=== PATIENT | male | born 1970 | race Caucasian/White ===

== ENCOUNTER 2018-04-06 05:40 | Inpatient (IN) | payer BC ==
[~2018-04-06] VITALS: Ht 177.8 cm; Wt 86.2 kg
[2018-04-06] MEDS ORDERED: ALVIMOPAN 12 MG CAPSULE PO ONE (06:21)
[2018-04-06] MEDS ORDERED: DEXAMETHASONE SOD PHOSPHATE 4 MG/ML VIAL IVP ONE (07:10)
[2018-04-06] MEDS ORDERED: PROPOFOL 200MG/ 20ML VIAL (DIPRIVAN) IV ONE (07:10)
[2018-04-06] MEDS ORDERED: DILTIAZEM HCL 25 MG/5 ML VIAL IV ONE (07:10)
[2018-04-06] MEDS ORDERED: MIDAZOLAM HCL 5 MG/5 ML VIAL IVP ONE (07:10)
[2018-04-06] MEDS ORDERED: fentaNYL CITRATE/PF 100 MCG/2 ML AMP IVP ONE (07:10)
[2018-04-06] MEDS ORDERED: fentaNYL CITRATE 250 MCG/5 ML AMP IV ONE (07:10)
[2018-04-06] MEDS ORDERED: D5W 100 ML IV.SOLN IV ONE (07:10)
[2018-04-06] MEDS ORDERED: KETOROLAC TROMETHAMINE 30 MG VIAL IVP ONE (07:10)
[2018-04-06] MEDS ORDERED: ROCURONIUM BROMIDE 10 MG/ML (ZEMURON) IV ONE (07:10)
[2018-04-06] MEDS ORDERED: ONDANSETRON HCL 4 MG/2 ML VIAL IVP ONE (07:10)
[2018-04-06] MEDS ORDERED: cefOXitin SODIUM 2 GM/VIAL (MEFOXIN) IV ONE (07:10)
[2018-04-06] MEDS ORDERED: LR 1,000 ML IV.SOLN IV ONE (07:10)
[2018-04-06] MEDS ORDERED: SEVOFLURANE 15 MIN GAS INH ONE (07:10)
[2018-04-06] MEDS ORDERED: cefOXitin 1 GM IVPB PREMIX 100 ML IV ONE (07:12)
[2018-04-06] MEDS ORDERED: LR 1,000 ML IV SCH (09:05)
[2018-04-06] MEDS ORDERED: HYDROmorphone 2 MG/ML VIAL IVP PRN ×2 (09:15)
[2018-04-06] MEDS ORDERED: HYDROmorphone 1 MG INJ. 1 MG/ML AMPUL IVP PRN (09:15)
[2018-04-06] MEDS ORDERED: MEPERIDINE HCL/PF 25 MG/ML DISP.SYRIN IVP PRN (09:15)
[2018-04-06] MEDS ORDERED: HYDROcodone/ACETAMIN 5-325 MG TAB (NORCO/ VICODIN) PO PRN (10:45)
[2018-04-06] MEDS ORDERED: ONDANSETRON HCL 4 MG/2 ML VIAL IVP PRN (10:45)
[2018-04-06] MEDS ORDERED: ACETAMINOPHEN 325 MG TABLET PO PRN (10:45)
[2018-04-06 11:40] LABS: HEMATOCRIT 42.5 % (36-54); HEMOGLOBIN 14.5 g/dL (14.0-18.0)
[2018-04-06 11:54] LABS: CALCIUM 8.3 mg/dL (8.4-11.0); CREATININE 1.6 mg/dL (0.55-1.30); POTASSIUM 4.7 mmol/L (3.5-5.1)
[2018-04-06] MEDS ORDERED: HYDROmorphone 2 MG/ML VIAL ONE (12:14)
[2018-04-06 13:00] VITALS: BP_SYST 149
--- NOTE | 2018-04-06 13:00 | NUR ---
ADMISSION NOTE: PATIENT ARRIVED FROM PACU. PATIENT IS ALERT AND ORIENTED. PATIENT IS ON 2L NC BECAUSE HE DESATS WHEN HE IS SLEEPING. PATIENT HAS SOME PAIN. PATIENT NOT COMPLAINING OF NAUSEA OR VOMITING. PATIENT HAS GALLEGO HANGING TO GRAVITY. INCENTIVE SPIROMETER AT BEDSIDE AND ENCOURAGED TO USE. DRESSING DRY AND INTACT. ICE PACK ON WOUND. VITALS ARE TAKEN. FAMILY AT BEDSIDE. BED ALARM IS ON AND CALL LIGHT IS IN REACH. WILL CONTINUE TO MONITOR.
[2018-04-06 13:23] VITALS: BP_SYST 149
[2018-04-06] MEDS: D5/0.45 NS 1,000 ML IV SCH ×2 (14:16→21:56)
[2018-04-06] MEDS: HYDROmorphone 1 MG INJ. 1 MG/ML AMPUL IVP PRN ×2 (14:26→17:16)
[2018-04-06 14:35] VITALS: BP_SYST 149
--- NOTE | 2018-04-06 14:36 | NUR ---
NOTE: PATIENT WAS COMPLAINING OF PAIN. GAVE PAIN MEDICATION AND IV FLUIDS. WILL CONTINUE TO MONITOR.
--- NOTE | 2018-04-06 16:06 | NUR ---
NOTE: PATIENT WAS BLEEDING FROM RECTUM. BLOOD RED AND SATURATED CHUCKS. BLOOD CLOTS PRESENT. TOOK VITALS AND WERE 120/74, 99 HR, 12 RR, TEMP 97.3. PATIENT WAS CLEANED UP. PATIENT LITTLE LIGHT HEADED BUT SAID HE'S BEEN LIGHT HEADED SINCE YESTERDAY. WILL CONTINUE TO MONITOR.
--- NOTE | 2018-04-06 17:01 | NUR ---
MD: PATIENT HAD ANOTHER EPISODE OF BLEEDING FROM RECTUM. BLOOD A LITTLE DARKER. CALLED AND LET DR. FUNES KNOW. ORDERED H&H. VITALS STILL STABLE. WILL CONTINUE TO MONITOR.
[2018-04-06 17:32] LABS: HEMATOCRIT 42.4 % (36-54); HEMOGLOBIN 14.4 g/dL (14.0-18.0)
--- NOTE | 2018-04-06 19:30 | NUR ---
CLOSING NOTE: GAVE REPORT TO RISK PROFESSIONAL NURSE. PATIENT LAYING IN BED. PATIENT HAD ANOTHER EPISODE OF BLEEDING. PATIENT BEING CLEANED UP. FLUIDS ARE INFUSING. DRESSING IS DRY AND INTACT. PATIENT HAS SCD'S ON. PATIENT ON 2L NC. PATIENT HAS INCENTIVE SPIROMETER AT BEDSIDE AND HAS BEEN USING IT. PATIENT SAID HE IS FEELING MORE LIGHT HEADED AND SWEATY BUT NO TEMP. WILL CALL DR. FUNES. BED ALARM IS ON AND CALL LIGHT IS IN REACH.
--- NOTE | 2018-04-06 19:34 | NUR ---
MD: CALLED DR. FUNES TO LET HIM KNOW PATIENT STILL BLEEDING AND RESULTS FROM H&H. SAID TO CALL HIM AROUND 11 PM TO LET HIM KNOW HOW MANY MORE EPISODES HE HAS. WILL ENDORSE TO SECURITY SCREENER NURSE. ORDERED TYPE AND SCREEN WELL JUST IN CASE.
[2018-04-06 19:43] VITALS: BP_SYST 143
--- NOTE | 2018-04-06 19:52 | NUR ---
INITIAL NOTES: PT IS IS ON BED. AWAKE, ALERT,ORIENTED, WORRIED ABOUT BLOOD IS COMING OUT FROM HIS ANUS POST-OP. VITAL SIGN ARE WITH NORMAL LIMIT. NO FEVER. PAIN /. PT CHUX WAS SOILED WITH BLOOD. CLEAN PT. NO SKIN BREAKDOWN. IVF INFUSING TO LEFT HAND GAUGE 22-NO INFILTRATE. SCD IN PLACE. INSTRUCTED TO USE I.S. HYPERACTIVE BOWEL SOUND. ABDOMINAL DRESSING IS INTACT AND DRY. POC DISCUSSED WITH THE PT. FAMILY AT BEDSIDE. CALL LIGHT IN REACH SIDE RAILS UP. WILL CONTINUE TO MONITOR. Addendum: 04/06/18 at 1958 by Cheko Arana RN GALLEGO CATHETER SEEN HANGING BELOW BED LEVEL.
[2018-04-06] MEDS: HYDROcodone/ACETAMIN 5-325 MG TAB (NORCO/ VICODIN) PO PRN (20:23)
[2018-04-06] MEDS: ALVIMOPAN 12 MG CAPSULE PO SCH (20:26)
[2018-04-06] MEDS: FAMOTIDINE PF 20 MG/2 ML VIAL IVP SCH (21:50)
[2018-04-06] MEDS: cefOXitin SODIUM 2 GM in D5W 100 ML IV SCH (21:51)
--- NOTE | 2018-04-06 22:12 | NUR ---
ROUNDS: PT IS COMPLAINING OF PAIN ON ABDOMEN. GALLEGO CATHETER IS LEAKING. GALLEGO CATHETER IS CLOGGED. REMOVE GALLEGO CATHETER AND PT START TO VOID BY HIS OWN. WITH SOME PAIN RELIEF. VITAL SIGN ARE STABLE. BLOOD STILL COMING OUT FROM ANUS. JULIUS TALAMANTES TO MONITOR. Addendum: 04/06/18 at 2223 by Cheko Arana RN JANINE TYPE OF GALLEGO CATHETER WAS REMOVE FROM PT.
[2018-04-06 22:18] VITALS: BP_SYST 129
--- NOTE | 2018-04-06 23:09 | NUR ---
CALL DR. Winsome FUNES- UPDATED MD ABOUT BLEEDING. ALSO INFORM MD THAT GALLEGO CATHETER WERE REMOVE CAUSE IT IS CLOGGED. MD ORDER CBC AND BMP IN AM AND ALSO AGREE TO DC GALLEGO CATHETER- AND ALSO ORDER TO REINSERT IF NO VOIDING IN 8 HOURS.
--- NOTE | 2018-04-06 23:25 | NUR ---
PT DEFECATE WITH BLOOD AGAIN. PT IS SO WORRIED. BP-97/77, HR-97. CALL DR. FUNES. INFORM MD ABOUT IT. MD ORDER STAT HEMOGLOBIN.
[2018-04-06 23:52] LABS: HEMATOCRIT 35.6 % (36-54)
[2018-04-06 23:55] LABS: HEMOGLOBIN 12.3 g/dL (14.0-18.0)
[2018-04-07] MEDS: HYDROmorphone 1 MG INJ. 1 MG/ML AMPUL IVP PRN ×7 (00:21→22:05)
--- NOTE | 2018-04-07 00:30 | NUR ---
call dr. zuñiga. inform md about the result of h elliott barclay. md order to crossmatch 2 units and hold. .
--- NOTE | 2018-04-07 01:00 | NUR ---
call lab. about cross match and hold. spoke to mally- she said that they can't crossmatch blood if it will not be transfuse, they can't hold on blood. she recommend to type and screen. if pt. needs blood transfusion and that the only time they will crossmatch.
[2018-04-07 01:45] VITALS: BP_SYST 110
--- NOTE | 2018-04-07 02:00 | NUR ---
round: resting, no distress. ivf infusing well. at bedside. will follow-up.
--- NOTE | 2018-04-07 03:00 | NUR ---
pt defecate blood with clots again. blood pressure is stable. remind pt that he have blood works in am. clean pt by cna. simeon
--- NOTE | 2018-04-07 04:30 | NUR ---
round notes: pt is resting. awake. watching tv. stable. ivf infusing well. will continue to monitorr.
--- NOTE | 2018-04-07 06:49 | NUR ---
closing: pt is still awake, alert. no sign of pain and distress. pt stated that he passing gas. ivf infusing. at bedside. pt is using urinal. needs attended the whole shift. will give bedside report to am rn.
[2018-04-07 06:56] LABS: CALCIUM 7.6 mg/dL (8.4-11.0); CREATININE 1.49 mg/dL (0.55-1.30)
[2018-04-07 06:57] LABS: BASOPHILS % (AUTO) 0.3 % (0.0-2.0); HEMATOCRIT 29.7 % (36-54); HEMOGLOBIN 10.1 g/dL (14.0-18.0); LYMPHOCYTES # (AUTO) 0.9 K/uL (1.0-5.5); LYMPHOCYTES % (AUTO) 6.9 % (20.5-51.5); MEAN CORPUSCULAR HEMOGLOBIN 31 pg (27-31); MEAN CORPUSCULAR HGB CONC 34 % (32-36); MEAN CORPUSCULAR VOLUME 90 fL (79.0-98.0); MONOCYTES # (AUTO) 0.9 K/uL (0.0-1.0); MONOCYTES % (AUTO) 6.9 % (1.7-9.3); NEUTROPHILS # (AUTO) 10.9 K/uL (1.8-7.7); NEUTROPHILS % (AUTO) 85.9 % (40.0-70.0); PLATELET COUNT (AUTO) 279 K/uL (130-430); RED BLOOD CELL COUNT(AUTO) 3.31 MIL/uL (4.2-6.2); RED CELL DISTRIBUTION WIDTH 12.6 % (9.0-15.0); WHITE BLOOD COUNT (AUTO) 12.7 K/uL (4.8-10.8)
[2018-04-07 07:06] LABS: ALBUMIN 2.5 g/dL (3.4-4.8); TOTAL BILIRUBIN 0.5 mg/dL (0.0-1.0)
[2018-04-07 07:45] VITALS: BP_SYST 114
--- NOTE | 2018-04-07 07:45 | NUR ---
OPENING NOTES, RECEIVED PT IN BED, PT IS AAOX4, C/O PAIN, 03/24, WILL MEDICATE, PT RECEIVING IV FLUIDS ON L WRIST IV ACCESS, NO S/S OF INFILTRATION OR SWELLING. CALL LIGHT IN REACH, BED IN LOW POSITION. FAMILY AT BEDSIDE. ENCOURAGED TO CALL FOR ASSIST AND ANY CONCERNS. WILL CONT TO MONITOR.
[2018-04-07] MEDS ORDERED: LR 1,000 ML IV SCH (08:00)
[2018-04-07] MEDS: FAMOTIDINE PF 20 MG/2 ML VIAL IVP SCH ×2 (08:14→20:14)
[2018-04-07] MEDS: ALVIMOPAN 12 MG CAPSULE PO SCH ×2 (08:14→20:14)
[2018-04-07] MEDS: cefOXitin SODIUM 2 GM in D5W 100 ML IV SCH (08:19)
[2018-04-07] MEDS ORDERED: ENOXAPARIN SODIUM 30 MG/0.3 ML SYRINGE SUBCUT SCH (09:00)
--- NOTE | 2018-04-07 09:24 | NUR ---
Nutrition Update Corby Scale 18 noted. Pt admitted for diverticulitis of colon. Diet: NPO BMI: 27.3 kg/m2 RD to follow per nutrition care standards.
--- NOTE | 2018-04-07 10:00 | NUR ---
PT C/O OF 2/10 PAIN, TOLERABLE, LR BOLUS STARTED, TOLD PT TO CALL IF HE FEELS APIN ON HIS IV SITE OR SWELLING. WILL CONT TO MONITOR.
--- NOTE | 2018-04-07 11:29 | NUR ---
PT C/O CHEST PAIN, PT DESCRIBED IT GASSY PAIN THOUGH, VITALS ARE 123/75, HR 104, 95% ON . -03/24. PT STATED WHEN HE BREATH DEEP THE PAIN IN MORE COMPARED TO SHALLOW FAST BREATHING PAIN GOED DOWN A LITTLE BETTER. WILL INFORM MD. Addendum: 04/07/18 at 1225 by Rolando Ramirez RN ana zuñiga, this rn told to call 's cell phone but phone number is wrong #.
[2018-04-07] MEDS: D5/0.45 NS 1,000 ML IV SCH ×2 (11:47→22:10)
[2018-04-07 11:54] VITALS: BP_SYST 119
--- NOTE | 2018-04-07 12:25 | NUR ---
paged dr zuñiga again via exchange. pt stated he feels better now after pain medication is given,
[2018-04-07 12:43] LABS: BASOPHILS % (AUTO) 0.3 % (0.0-2.0); EOSINOPHILS % (AUTO) 0.1 % (0.0-4.0); HEMATOCRIT 27.5 % (36-54); HEMOGLOBIN 9.4 g/dL (14.0-18.0); LYMPHOCYTES # (AUTO) 1.3 K/uL (1.0-5.5); LYMPHOCYTES % (AUTO) 9.5 % (20.5-51.5); MEAN CORPUSCULAR HEMOGLOBIN 30 pg (27-31); MEAN CORPUSCULAR HGB CONC 34 % (32-36); MEAN CORPUSCULAR VOLUME 89 fL (79.0-98.0); MONOCYTES # (AUTO) 1.3 K/uL (0.0-1.0); MONOCYTES % (AUTO) 9.5 % (1.7-9.3); NEUTROPHILS # (AUTO) 10.9 K/uL (1.8-7.7); NEUTROPHILS % (AUTO) 80.6 % (40.0-70.0); PLATELET COUNT (AUTO) 267 K/uL (130-430); RED BLOOD CELL COUNT(AUTO) 3.11 MIL/uL (4.2-6.2); RED CELL DISTRIBUTION WIDTH 12.7 % (9.0-15.0); WHITE BLOOD COUNT (AUTO) 13.4 K/uL (4.8-10.8)
--- NOTE | 2018-04-07 12:45 | NUR ---
DR FUNES HERE AND AWARE RE PT'S C/O CHEST PAIN. MADE AWARE OF THE CBC RESULT FOR 12NOON. NEW ORDERS GIVEN.
[2018-04-07 12:46] LABS: CALCIUM 7.8 mg/dL (8.4-11.0); CREATININE 1.46 mg/dL (0.55-1.30); POTASSIUM 4.1 mmol/L (3.5-5.1)
[2018-04-07 16:04] VITALS: BP_SYST 131
--- NOTE | 2018-04-07 19:02 | NUR ---
PT GIVEN PAIN MED FOR PAIN OF 8/10 IN HIS ABD, PT STILL C/O CHEST PAIN, PT STILL THINKS IT IS FROM GAS. PT DANGLES HIS FEET/LEGS ON THE FLOOR AND SAT ON EOB, FOR ABOUT 5 MINS. PT THEN LAY DOWN IN BED, C/O OF PAIN AFTER PULLING HIS SELF UP ON BED.
--- NOTE | 2018-04-07 19:04 | NUR ---
CLOSING NOTES, PT HAS BEEN STABLE, EXCEPT FOR PAIN, PAIN MEDS GIVEN REQUESTED. PT HAD 2X BLOODY STOOL AND 1 VERY SMALL BLOOD SMEAR NOTED ON HIS CHUCKS. LABS BEING DRAWN THIS TIME. WILL ENDORSE TO NIGHT RN TO CALL MD FOR RESULT OF H/S AND BMP.
[2018-04-07 19:29] LABS: HEMATOCRIT 25.1 % (36-54); HEMOGLOBIN 8.6 g/dL (14.0-18.0)
--- NOTE | 2018-04-07 19:57 | NUR ---
PAGED EMILI AYERS, (TIFFANIE NICHOLS) FOR ORDERS SPOKE WITH LISETTE.
[2018-04-07 20:00] VITALS: BP_SYST 126
--- NOTE | 2018-04-07 20:00 | NUR ---
OPENING SHIFT NOTE patient is alert oriented x4. IV on left hand, 18G, infusing D5-1/2NS at 100ml/hr, no infiltration noted. patient states that he feels bloated and the pressure causing pain. educated patient on pain management. dressing on abdomen is clean, dry, intact. plan of care discussed and advised patient to call PRN. patient verbalized understanding. will continue to monitor.
--- NOTE | 2018-04-07 20:27 | NUR ---
SPOKE MD spoke with Dr. Avina. informed him result of Hgb/Hct. he asked if patient had more bloody stool. informed him that per report patient had three in morning, but not since change of shift. he order another cbc and cmp for morning. informed him that patient complains of itchiness with Dilaudid. asked if he he can have Benadryl. order received for Benadryl 25mg PO Q8hr. order read back and verified.
[2018-04-07] MEDS: DIPHENHYDRAMINE HCL 25 MG CAPSULE PO PRN (21:01)
--- NOTE | 2018-04-07 22:15 | NUR ---
PAIN MEDICATION patient complaining of 7/10 pain. administered Dilaudid per order. patient states that bloating feeling is better after Pepcid. and his itchiness is better also. advised patient to call PRN. patient verbalized understanding. will continue to monitor.
--- NOTE | 2018-04-07 23:52 | NUR ---
ROUNDS patient sleeping comfortably on his left side, no distress noted. will continue to monitor. bed in lowest position, call light within reach.
[2018-04-08] MEDS: HYDROmorphone 1 MG INJ. 1 MG/ML AMPUL IVP PRN ×3 (01:19→17:08)
--- NOTE | 2018-04-08 01:29 | NUR ---
PAIN MEDICATION patient states that his pain is 8/10, requesting pain medication. administered Dilaudid per order. informed patient of increased risk for fall and to call PRN. patient verbalized understanding. will continue to monitor.
[2018-04-08] MEDS: HYDROcodone/ACETAMIN 5-325 MG TAB (NORCO/ VICODIN) PO PRN ×3 (04:29→20:25)
--- NOTE | 2018-04-08 04:30 | NUR ---
ROUNDS patient awake, states that his pain is 5/10, requesting pain medication. administered Hydrocodone per order. patient requesting warm blankets, provided warm blankets to patient. advised patient to call PRN. patient verbalized understanding. will continue to monitor.
[2018-04-08 05:39] VITALS: BP_SYST 138
--- NOTE | 2018-04-08 06:12 | NUR ---
ROUNDS patient lying in bed with at bedside. patient states that his pain is tolerable when he lays still but it gets painful when he moves. did not want pain medication at this time. advised patient to call PRN. patient verbalized understanding. will continue to monitor.
[2018-04-08 07:25] LABS: HEMOGLOBIN 7.6 g/dL (14.0-18.0); LYMPHOCYTES # (AUTO) 2.7 K/uL (1.0-5.5); MONOCYTES # (AUTO) 1.2 K/uL (0.0-1.0); NEUTROPHILS # (AUTO) 9.6 K/uL (1.8-7.7)
--- NOTE | 2018-04-08 07:27 | NUR ---
END OF SHIFT care endorsed to Gloria GARCIA. no distress noted with patient.
--- NOTE | 2018-04-08 07:34 | NUR ---
OPENING NOTE PT IS ASLEEP, EASILY AROUSED. NO DISTRESS NOTED, DENIES ANY CP/ SOB. PT REORIENTED TO CALL LIGHT USE, BED ALARM ON WITH BED IN THE LOWEST POSITION. WILL MONITOR
[2018-04-08 07:37] LABS: ALBUMIN 2.5 g/dL (3.4-4.8); BASOPHILS # (AUTO) 0.1 K/uL (0.0-0.2); BASOPHILS % (AUTO) 0.4 % (0.0-2.0); CREATININE 1.41 mg/dL (0.55-1.30); EOSINOPHILS # (AUTO) 0.1 K/uL (0.0-0.4); EOSINOPHILS % (AUTO) 0.4 % (0.0-4.0); MEAN CORPUSCULAR HEMOGLOBIN 31 pg (27-31); MEAN CORPUSCULAR HGB CONC 35 % (32-36); MEAN CORPUSCULAR VOLUME 89 fL (79.0-98.0); NEUTROPHILS % (AUTO) 70.2 % (40.0-70.0); PLATELET COUNT (AUTO) 217 K/uL (130-430); RED BLOOD CELL COUNT(AUTO) 2.46 MIL/uL (4.2-6.2); RED CELL DISTRIBUTION WIDTH 12.8 % (9.0-15.0); TOTAL BILIRUBIN 0.3 mg/dL (0.0-1.0); WHITE BLOOD COUNT (AUTO) 13.7 K/uL (4.8-10.8)
[2018-04-08 08:00] VITALS: BP_SYST 116
[2018-04-08] MEDS: D5/0.45 NS 1,000 ML IV SCH (08:32)
[2018-04-08] MEDS: ALVIMOPAN 12 MG CAPSULE PO SCH ×2 (08:35→20:24)
[2018-04-08] MEDS: FAMOTIDINE PF 20 MG/2 ML VIAL IVP SCH ×2 (08:36→20:24)
--- NOTE | 2018-04-08 08:46 | NUR ---
med pass ivp pepcid given at this time, po entereg given. pt c/o abd pain 02/22 given norco as ordered. safety maintained
--- NOTE | 2018-04-08 09:10 | NUR ---
spoke with dr zuñiga- made aware of patients H&H- new orders given.
--- NOTE | 2018-04-08 12:30 | NUR ---
pt bleeding from rectum- no stool noted. large amount of red blood. vital signs assessed - dr. zuñiga made aware
[2018-04-08 12:50] VITALS: BP_SYST 142
--- NOTE | 2018-04-08 13:13 | NUR ---
BT INITIATION: Consent signed by patient agreeing to administration of blood. Blood has been type and crossmatched. Blood sent from blood bank. Information on unit of blood checked against patient wristband at bedside by two nurses. All information matches. Patient or responsible republican informed of potential complications associated with blood transfusion. Informed of possible transfusion reaction symptoms. Aware of need to notify nurse at once of itching, shortness of breath, flushing, feeling of impending doom, or other symptoms not previously present. Vital signs taken within 5 minutes prior to initiation of transfusion. RN will remain with patient for first 15 minutes of transfusion at which time vital signs will be re-assessed.
--- NOTE | 2018-04-08 13:28 | NUR ---
no s/s of blood transfusion reactions noted. pt denies any feeling of itchiness, sob, pain, or feeling of impending doom. safety maintained, at bedside as well
--- NOTE | 2018-04-08 13:49 | NUR ---
IV PLACEMENT: # 22 gauge angiocath placed to right ac. Use of asceptic technique. Opsite placed over site. Blood return noted. . Flushed with 10 cc of normal saline. No evidence of infiltration noted. Patient tolerated well.
[2018-04-08] MEDS ORDERED: MEPERIDINE HCL/PF 100 MG/ML AMP ONE (13:50)
[2018-04-08] MEDS ORDERED: SIMETHICONE 40 MG/0.6 ML ML ONE (13:50)
[2018-04-08] MEDS ORDERED: MIDAZOLAM HCL 5 MG/5 ML VIAL ONE ×2 (13:51→13:52)
--- NOTE | 2018-04-08 13:59 | NUR ---
med pass pt c/o abd pain, given dilaudid as ordered through new iv site
--- NOTE | 2018-04-08 14:20 | NUR ---
pt taken to GI lab at this time.
--- NOTE | 2018-04-08 15:20 | NUR ---
pt returned from colonoscopy at this time. vitals stable
--- NOTE | 2018-04-08 15:50 | NUR ---
blood 2 unit 2 unit of blood administered at this time. pt aware of s/s of blood transfusion reactions. will stay with patient for 15 min during
--- NOTE | 2018-04-08 16:10 | NUR ---
pt denies any feeling of itchiness,pain, sob, no temperature noted. pt stated he feels much better. safety maintained, will continue to monitor
[2018-04-08 16:50] VITALS: BP_SYST 125
--- NOTE | 2018-04-08 17:10 | NUR ---
med pass pt c/o of abd pain 10/10 given Dilaudid ivp as ordered. safety maintained. no distress noted.
--- NOTE | 2018-04-08 19:30 | NUR ---
Opening note Received patient awake, alert, and oriented x4. No s/s of distress noted. IV noted and intact at this time. Plan of care reviewed and patient reoriented to call light, patient verbalizes understanding. Denies further needs. Bed is down, locked, side rails up x2, call light within reach. Bed alarm on. Will continue to monitor.
--- NOTE | 2018-04-08 19:41 | NUR ---
closing note all needs met through shift,safety maintained. care endorsed to tier in [facility].
[2018-04-08 19:56] LABS: HEMATOCRIT 27.3 % (36-54); HEMOGLOBIN 9.1 g/dL (14.0-18.0)
[2018-04-08 20:00] VITALS: BP_SYST 128
--- NOTE | 2018-04-08 21:39 | NUR ---
Rounds Patient is resting quietly in bed at this time. No s/s of distress. Breathing is even and unlabored. Bed is down, locked, side rails up x2, call light within reach. Bed alarm on. Will continue to monitor.
--- NOTE | 2018-04-08 22:00 | NUR ---
Blood transfusion Blood transfusion started. Patient instructed on adverse reactions and to notify nurse if start to experience any symptoms, patient verbalizes understanding. No adverse reactions noted. Bed is down, locked, side rails up x2, call light within reach, bed alarm on. Will continue to monitor.
[2018-04-09] VITALS: BP_SYST 132
--- NOTE | 2018-04-09 | NUR ---
Blood transfusion complete Blood transfusion complete. Patient denies adverse reactions. Breathing is even and unlabored. Denies further needs at this time. Bed is down, locked, side rails up x2, call light within reach, bed alarm on. Will continue to monitor.
--- NOTE | 2018-04-09 02:10 | NUR ---
Rounds Patient is resting quietly in bed at this time. No s/s of respiratory distress. Breathing is even and unlabored. Bed is down, locked, side rails up x2, call light within reach. Bed alarm on. Will continue to monitor.
[2018-04-09] MEDS: HYDROcodone/ACETAMIN 5-325 MG TAB (NORCO/ VICODIN) PO PRN ×4 (03:00→23:52)
[2018-04-09] MEDS: DIPHENHYDRAMINE HCL 25 MG CAPSULE PO PRN (03:01)
[2018-04-09] MEDS: D5/0.45 NS 1,000 ML IV SCH ×3 (03:02→21:27)
--- NOTE | 2018-04-09 04:19 | NUR ---
Rounds Patient is resting in bed with eyes closed. No s/s of distress noted at this time. Breathing is even and unlabored. Bed is down, locked, side rails up x2, call light within reach. Bed alarm on. Will continue to monitor.
--- NOTE | 2018-04-09 06:23 | NUR ---
Rounds Patient is resting in bed with eyes closed. No s/s of distress noted. Breathing is even and unlabored. Bed is down, locked, side rails up x2, call light within reach. Bed alarm on. Will continue to monitor.
[2018-04-09 07:33] LABS: BASOPHILS # (AUTO) 0.1 K/uL (0.0-0.2); EOSINOPHILS # (AUTO) 0.1 K/uL (0.0-0.4); WHITE BLOOD COUNT (AUTO) 8.8 K/uL (4.8-10.8)
[2018-04-09 07:48] LABS: BASOPHILS % (AUTO) 0.8 % (0.0-2.0); EOSINOPHILS % (AUTO) 0.6 % (0.0-4.0); HEMATOCRIT 29.3 % (36-54); HEMOGLOBIN 9.9 g/dL (14.0-18.0); LYMPHOCYTES # (AUTO) 1.8 K/uL (1.0-5.5); MEAN CORPUSCULAR HEMOGLOBIN 30 pg (27-31); MEAN CORPUSCULAR HGB CONC 34 % (32-36); MEAN CORPUSCULAR VOLUME 90 fL (79.0-98.0); MONOCYTES # (AUTO) 0.7 K/uL (0.0-1.0); MONOCYTES % (AUTO) 8.5 % (1.7-9.3); NEUTROPHILS # (AUTO) 6.1 K/uL (1.8-7.7); NEUTROPHILS % (AUTO) 70.1 % (40.0-70.0); PLATELET COUNT (AUTO) 183 K/uL (130-430); RED BLOOD CELL COUNT(AUTO) 3.27 MIL/uL (4.2-6.2)
[2018-04-09 08:00] VITALS: BP_SYST 144
--- NOTE | 2018-04-09 08:00 | NUR ---
RN OPENING NOTE PATIENT RESTING ON BED, ALERT ORIENTED X 4, PATIENT WAS ASSESSED, VITAL SIGNS ARE STABLE. BED AT LOW POSITION, CALL LIGHT WITHIN REACH WILL FOLLOW UP.
[2018-04-09 08:05] LABS: ALBUMIN 2.6 g/dL (3.4-4.8); CALCIUM 8.3 mg/dL (8.4-11.0); CREATININE 1.29 mg/dL (0.55-1.30); POTASSIUM 3.8 mmol/L (3.5-5.1); TOTAL BILIRUBIN 0.6 mg/dL (0.0-1.0)
--- NOTE | 2018-04-09 08:10 | NUR ---
Closing note Patient is resting quietly in bed at this time. No s/s of distress noted. Breathing is even and unlabored. IV is infusing well. All needs met and anticipated by noc shift nurse. Bed is down, locked, side rails up x2, call light within reach. Bed alarm on. Endorsed care to day shift nurse.
[2018-04-09] MEDS: FAMOTIDINE PF 20 MG/2 ML VIAL IVP SCH ×2 (08:48→21:26)
[2018-04-09] MEDS: ALVIMOPAN 12 MG CAPSULE PO SCH ×2 (08:48→21:26)
--- NOTE | 2018-04-09 10:00 | NUR ---
RN NOTE PATIENT HAS BEEN SEEN BY DR. FUNES THAT ORDERED HIM TO BE ON CLEAR LIQUID, WILL MONITOR HOW THE PATIENT RESPOND TO THAT, PATIENT DENIES NAUSEA OR ABDOMINAL PAIN,
--- NOTE | 2018-04-09 12:00 | NUR ---
RN NOTE PATIENT WAS EDUCATED ABOUT FALL PREVENTION, DISEASE PROCESS. PATIENT WAS AMBULATED TO THE BATHROOM FOR A BM.
[2018-04-09 12:50] VITALS: BP_SYST 132
--- NOTE | 2018-04-09 14:00 | NUR ---
RN NOTE PATIENT RESTING ON BED, DENIES PAIN OR DISCOMFORT. PATIENT WAS AMBULATED IN THE HALLWAY, PATIENT TOLERATED IT VERY WELL
--- NOTE | 2018-04-09 16:00 | NUR ---
RN NOTE PATIENT'S FAMILY CAME OVER, HE IS IN A GOOD SPIRIT, AMBULATING WITH THE HELP OF HIS AND 4 DAUGHTER, DENIES NAUSEA OR PAIN, TOLERATING HIS CLEAR LIQUID DIET.
[2018-04-09 16:45] VITALS: BP_SYST 130
--- NOTE | 2018-04-09 18:00 | NUR ---
RN NOTE PATIENT DENIES PAIN OR DISCOMFORT, PATIENT IS CONCERNED ABOUT THE LOOSE BM HE HAD, PATIENT WAS EDUCATED ABOUT THE HIS POST OP CONDITION. PATIENT'S FAMILY BY THE BEDSIDE, IS A GOOD SPIRIT. DR. FUNES TALKED TO THE PATIENT ABOUT POSSIBLE D/C IN AM, WILL ENDORSE TO NEXT SHIFT.
[2018-04-09 19:20] VITALS: BP_SYST 132
--- NOTE | 2018-04-09 19:20 | NUR ---
OPENING NOTE Received bedside sbar report from sherrellmtvictor m Velasquez. Patient is awake/alert/oriented with his family members bedside. No acute distress noted at this time: 132/86 84 16 99% (room air) 98.8 5/10 pain IV site noted to RAC 22G, saline locked and Lhand 18G currently infusing D51/2NS @ 100ml/hr. Patency verified with good blood return/flush. SCD's applied/functioning. Education given regarding bedside IS. Introduced myself, updated whiteboard, discussed plan of care. Bed to lowest position, 3 side rails up, call light in hand, bed alarm activated. Will continue to monitor patient.
[2018-04-09 19:45] VITALS: BP_SYST 132
--- NOTE | 2018-04-09 19:51 | NUR ---
PAIN MEDICATION Patient complains of 5/10 abdominal pain. Administered [place] 5mg/2T as ordered by physician for moderate pain. Will follow up with patient to ensure effective pain management.
--- NOTE | 2018-04-09 21:25 | NUR ---
ROUNDS Patient is awake/alert/oriented, family members no longer bedside. He would like a warm blanket; provided. Empties approx 300 light yellow urine from bedside urinal. He does not need anything at this time. Bed to lowest position, 3 side rails up, call light in hand, bed alarm activated. Will continue to monitor patient.
--- NOTE | 2018-04-10 01:20 | NUR ---
ROUNDS Patient is resting comfortably, eyes closed with no acute distress noted. Respirations are non-labored and equal; 14/min. IV site is clean/dry/intact with no signs of redness/infiltration. Will continue to monitor patient.
--- NOTE | 2018-04-10 03:30 | NUR ---
ROUNDS Patient is awake/alert/oriented, using bedside urinal as I enter room. He does not need anything at this time and is not experiencing any pain or discomfort. No shortness of breath or labored breathing noted. IV site is clean/dry/intact and infusing D51/2NS @ 100ml/hr and there are no signs of infiltration. Bed to lowest position, 3 side rails up, call light within reach, bed alarm activated. Will continue to monitor patient.
[2018-04-10 03:32] VITALS: BP_SYST 118
--- NOTE | 2018-04-10 05:43 | NUR ---
ROUNDS Patient is resting comfortably, eyes closed and easily arousable to light stimulation. No shortness of breath noted. IV site is clean/dry/intact and infusing D5 1/2NS @ 100ml/hr and there are no signs of redness or infiltration. Bed to lowest position, 3 side rails up, call light within reach, bed alarm activated. Will continue to monitor patient.
--- NOTE | 2018-04-10 06:25 | NUR ---
Updated diet to full liquid. Standing order to advance diet as tolerated. Patient tolerated clear liquid without nausea or incident yesterday. Called dietary, informed.
--- NOTE | 2018-04-10 07:30 | NUR ---
INITIAL NOTE RECEIVED PT IN BED, NO S/S OF DISTRESS OR SOB NOTED, PT HAS NO C/O PAIN AT THIS TIME, PT IN STABLE CONDITION, PT AAOX4, VERBAL. IV CATHETERS PATENT, NO SIGNS OF INFECTION OR INFILTRATION NOTED. PT HAS NO C/O ABD PAIN, NAUSEA OR VOMITING. PT HAS BILATERAL SCD'S IN PLACE. EDUCATED PT ON USE OF INCENTIVE SPIROMETER, PT TO USE 10 TIMES AN HOUR WHILE AWAKE, PT VERBALIZED UNDERSTANDING, PT AT 3500ML. BED AT LOWEST POSITION, CALL LIGHT WITHIN REACH, WILL CONTINUE TO MONITOR PT FOR ANY CHANGES, FALL AND SAFETY PRECAUTIONS IN PLACE.
--- NOTE | 2018-04-10 07:34 | NUR ---
CLOSING NOTES Bedside sbar report given to Ronnie GARCIA. Patient is awake/alert/oriented, using his phone All needs/interventions/expectations met by nightshift RN. Transfer of care successful.
[2018-04-10] MEDS: FAMOTIDINE PF 20 MG/2 ML VIAL IVP SCH (08:22)
[2018-04-10] MEDS: ALVIMOPAN 12 MG CAPSULE PO SCH (08:23)
[2018-04-10] MEDS: D5/0.45 NS 1,000 ML IV SCH (08:24)
[2018-04-10 08:33] VITALS: BP_SYST 147
--- NOTE | 2018-04-10 10:01 | NUR ---
ROUNDS PT IN BED, NO S/S OF DISTRESS OR SOB NOTED, PT HAS NO C/O PAIN AT THIS TIME, PT IN STABLE CONDITION, PT WATCHING TV, WILL CONTINUE TO MONITOR PT FOR ANY CHANGES.
[2018-04-10 12:19] VITALS: BP_SYST 154
--- NOTE | 2018-04-10 12:20 | NUR ---
ROUNDS PT IN BED, NO S/S OF DISTRESS OR SOB NOTED, PT HAS NO C/O PAIN AT THIS TIME, PT IN STABLE CONDITION, PT WATCHING TV AND TALKING TO AT BEDSIDE, WILL CONTINUE TO MONITOR PT FOR ANY CHANGES.
[2018-04-10 12:29] VITALS: BP_SYST 132
--- NOTE | 2018-04-10 13:47 | NUR ---
D/C Patient Patient given medication reconciliation form and D/C instructions. Exit Care provided. Patient verbalized understanding. MD discussed with patient the results and treatment provided. Ambulatory with assist for discharge to home. Patient in stable condition, ID band removed. IV catheter removed, intact and dressing applied, no active bleeding. Patient educated on pain management. All belongings sent with patient. Pt has 5 abd incisions with esther clean, dry and approximated, no signs of infection noted.
== END 2018-04-10 13:47 | disposition home or self-care (01) | DRG 354 ==
LOC: SMU 05:40 → EDSTATUS 09:45 → SMU 13:00
PROVIDERS: ADMIT Colon & Rectal Surgery; ATTEND Colon & Rectal Surgery
PROC: 0WQF4ZZ Repair Abdominal Wall, Percutaneous Endoscopic Approach (ICD-10-PCS; 2018-04-06)
PROC: 0DBN4ZX Excision of Sigmoid Colon, Percutaneous Endoscopic Approach, Diagnostic (ICD-10-PCS; 2018-04-06)
PROC: 30233N1 Transfusion of Nonautologous Red Blood Cells into Peripheral Vein, Percutaneous Approach (ICD-10-PCS; 2018-04-08)
PROC: 0DJD8ZZ Inspection of Lower Intestinal Tract, Via Natural or Artificial Opening Endoscopic (ICD-10-PCS; principal; 2018-04-08 14:30)
DX: K42.0 Umbilical hernia with obstruction, without gangrene (principal); K57.32 Diverticulitis of large intestine without perforation or abscess without bleeding; K91.840 Postprocedural hemorrhage of a digestive system organ or structure following a digestive system procedure; Y83.8 Other surgical procedures as the cause of abnormal reaction of the patient, or of later complication, without mention of misadventure at the time of the procedure; Y92.89 Other specified places as the place of occurrence of the external cause
CPT/HCPCS: 36415; 45378; 80048; 80053; 85018-TC; 85025; 86886; 86900; 86901; 86920; 87081; 88302; 88307; 93005; 93970; 94010; C1727; J0694; J1100; J1170; J1885; J2175; J2250; J2405; J2704; J3010; J3490; J7060; J7120; P9021; Q0163